=== PATIENT | female | born 1955 | race Caucasian/White ===

== ENCOUNTER → 2016-09-09 | Outpatient (CLI) | payer BC ==
[2016-09-09 11:04] LABS: CH 27.6; CHCM 32.3; HCT 40.2 % (34.0-46.0); HDW 2.17; HGB 12.9 gm/dL (11.4-16.0); MCH 27.6 pg (25.0-35.0); Mean Platelet Volume 8.1; RBC 4.67 m/uL (3.80-5.40); RDW 13.3 % (11.5-15.5); WBC 5.4 k/uL (3.8-10.6)
[2016-09-09 11:26] LABS: ALT 18 U/L (9-52); AST 28 U/L (14-36); Alkaline Phosphatase 103 U/L (38-126); Anion Gap 8 mmol/L; Blood Urea Nitrogen 18 mg/dL (7-17); Calcium 9.9 mg/dL (8.4-10.2); Carbon Dioxide 29 mmol/L (22-30); Chloride 108 mmol/L (98-107); Glucose 91 mg/dL (74-99); Non-African American GFR(MDRD) 56 (>60 ml/min/1.73 sqM); Potassium 4.8 mmol/L (3.5-5.1); Sodium 145 mmol/L (137-145); Total Bilirubin 0.8 mg/dL (0.2-1.3); Total Protein 7.2 g/dL (6.3-8.2)
== END ==
LOC: LABWHC1 10:32
PROVIDERS: ATTEND Internal Medicine Cardiovascular Disease
DX: I49.9 Cardiac arrhythmia, unspecified (principal); R00.1 Bradycardia, unspecified
CPT/HCPCS: 36415; 80053; 84439; 84443; 85027

== ENCOUNTER → 2017-03-03 | Outpatient (CLI) | payer BC ==
--- NOTE | 2017-03-04 12:03 | MM ---
Reason for exam: screening (asymptomatic). Last mammogram was performed 1 year and 4 months ago. History: Patient is postmenopausal. Family history of breast cancer in grandmother and breast cancer in aunt. Physical Findings: A clinical breast exam by your physician is recommended on an annual basis and results should be correlated with mammographic findings. MG Screening Mammo w CAD Bilateral CC and MLO view(s) were taken. Prior study comparison: November 05, 2015, bilateral MG 3d screening mammo w/cad. October 17, 2014, bilateral MG screening mammo w CAD. The breast tissue is heterogeneously dense. This may lower the sensitivity of mammography. Finding: There are typically benign round calcifications in both breasts. There is no discrete abnormality. ASSESSMENT: Benign, BI-RAD 2 RECOMMENDATION: Routine screening mammogram of both breasts in 1 year.
== END | disposition home or self-care (01) ==
LOC: RADMAMWWP 15:22
PROVIDERS: ATTEND Family Medicine
DX: Z12.31 Encounter for screening mammogram for malignant neoplasm of breast (principal)

== ENCOUNTER 2018-04-12 09:24 | Day surgery (SDC) | payer BC, MEDICARE ==
[2018-04-07 13:14] VITALS: BMI 25.6
[~2018-04-12 09:24] MED LIST: LACTATED RINGERS 1,000 ML IV SCH; LIDOCAINE 1% 20 ML VIAL (10MG/ML) FOR IV START INTRADERMA PRN
[2018-04-12 09:47] VITALS: RESP 16; TEMP 98.4
[2018-04-12] MEDS ORDERED: PROPOFOL 10 MG/ML 20 ML VIAL IV ONE (09:47)
[2018-04-12] MEDS ORDERED: MIDAZOLAM 2 MG/2 ML VIAL ONE (09:47)
[2018-04-12] MEDS ORDERED: GLUCAGON 1 MG/ML VIAL ONE (09:47)
--- NOTE | 2018-04-12 09:55 | P.GSHP ---
History of Present Illness H&P Date: 04/12/18 Chief Complaint: Screening colonoscopy This is a 63-year-old female who presents today for screening colonoscopy. Patient denies any significant GI complaints. Past Medical History Past Medical History: Hypertension, Supraventricular Tachycardia (SVT) Additional Past Medical History / Comment(s): BILAT TINNITUS. FOOD ALLERGIES History of Any Multi-Drug Resistant Organisms: None Reported Past Surgical History: Adenoidectomy, Orthopedic Surgery, Tonsillectomy, Tubal Ligation Additional Past Surgical History / Comment(s): BILAT FOOT SX. CONE BX Past Anesthesia/Blood Transfusion Reactions: No Reported Reaction Smoking Status: Never smoker - Past Family History Father Family Medical History: Cancer Medications and Allergies Home Medications Medication Instructions Recorded Confirmed Type Aspirin EC [Ecotrin Low Dose] 81 mg PO DAILY 04/07/18 04/07/18 History Cholecalciferol (Vitamin D3) 2,000 units PO DAILY 04/07/18 04/12/18 History [Vitamin D3] Citracal Tab 1 each PO DAILY 04/07/18 04/12/18 History Flecainide Acetate 50 mg PO BID 04/07/18 04/07/18 History Metoprolol Tartrate [Lopressor] 25 mg PO BID 04/07/18 04/07/18 History Allergies Allergy/AdvReac Type Severity Reaction Status Date / Time egg Allergy Rash/Hives Verified 04/12/18 09:35 Penicillins Allergy Unknown Verified 04/12/18 09:35 Childhood Sulfa (Sulfonamide Allergy Rash/Hives Verified 04/12/18 09:35 Antibiotics) corn AdvReac congestion,sometimes Verified 04/12/18 09:35 hives Milk Containing Products AdvReac congestion,sometimes Verified 04/12/18 09:35 [Dairy] hives potato AdvReac congestion,sometimes Verified 04/12/18 09:35 hives soy AdvReac congestion,sometimes Verified 04/12/18 09:35 hives tomato AdvReac congestion,sometimes Verified 04/12/18 09:35 hives Surgical - Exam Vital Signs Temp Pulse Resp BP Pulse Ox 98.4 F 72 16 179/82 99 04/12/18 09:40 04/12/18 09:40 04/12/18 09:40 04/12/18 09:40 04/12/18 09:40 - General well developed, no distress - Eyes PERRL - ENT normal pinna - Neck no masses - Respiratory normal expansion - Cardiovascular Rhythm: regular - Abdomen Abdomen: soft, non tender Assessment and Plan Assessment: We'll perform screening colonoscopy.
--- NOTE | 2018-04-12 10:12 | P.OP ---
Date of Procedure: 04/12/18 Preoperative Diagnosis: Screening colonoscopy Postoperative Diagnosis: Incomplete colonoscopy related to tortuosity valve. Normal left and sigmoid colon Procedure(s) Performed: Colonoscopy Anesthesia: MAC Surgeon: Mark Guzman Pathology: none sent Condition: stable Disposition: PACU Description of Procedure: The patient's placed on the endoscopy table in the lateral position. She received IV sedation. Digital rectal exam was performed which revealed no some mild external hemorrhoids. Flexible colonoscope was then placed patient anus and passed throughout the the colon. The scope could not be passed beyond the splenic flexure secondary to tortuosity valve. Several times made to maneuver the colonoscope however this impossible. Scope was withdrawn. The remainder of the descending; appeared normal. The scope was withdrawn to the rectum and this will. Scope was withdrawn through the anus and there were some sternal hemorrhoids noted. Scope was withdrawn for patient.
[2018-04-12 10:33] VITALS: BP 135/78; PULSE 54
--- NOTE | 2018-04-12 15:37 | FL ---
EXAMINATION TYPE: FL barium enema DATE OF EXAM: 04/12/2018 COMPARISON: NONE HISTORY: Incomplete colonoscopy TECHNIQUE: A double contrast barium enema study is performed. 3 minutes and 22 seconds of fluoroscop y time was utilized with 44 images saved. FINDINGS: Generating Plant Superintendent view of the abdomen shows overall non-obstructive bowel gas pattern. No evidence of any mass or polyp, obstructing or constricting lesion throughout the colon. No signif icant diverticular disease is noted. Appendix was filled and appeared normal. The terminal ileum was refluxed and appears within normal l imits. IMPRESSION: Unremarkable barium enema study.
== END 2018-04-12 10:54 | disposition home or self-care (01) ==
LOC: ORWHC2ENDO 09:24
PROVIDERS: ATTEND Surgery
DX: Z12.11 Encounter for screening for malignant neoplasm of colon (principal); K64.8 Other hemorrhoids; I10 Essential (primary) hypertension; I47.1 Supraventricular tachycardia; Z79.82 Long term (current) use of aspirin; Z88.0 Allergy status to penicillin; Z79.899 Other long term (current) drug therapy; Z88.2 Allergy status to sulfonamides
CPT/HCPCS: 74270; 45330; J2250; J1610; J2704

== ENCOUNTER → 2018-04-27 | Outpatient (CLI) | payer MEDICARE ==
--- NOTE | 2018-05-03 14:34 | MM ---
Reason for exam: screening (asymptomatic). Last mammogram was performed 1 year and 2 months ago. History: Patient is postmenopausal. Family history of breast cancer in grandmother and breast cancer in aunt. Physical Findings: A clinical breast exam by your physician is recommended on an annual basis and results should be correlated with mammographic findings. MG Screening Mammo w CAD Bilateral CC and MLO view(s) were taken. Prior study comparison: March 03, 2017, bilateral MG screening mammo w CAD. November 05, 2015, bilateral MG 3d screening mammo w/cad. The breast tissue is heterogeneously dense. This may lower the sensitivity of mammography. Benign bilateral oil cysts. No significant changes when compared with prior studies. ASSESSMENT: Negative, BI-RAD 1 RECOMMENDATION: Routine screening mammogram of both breasts in 1 year.
== END | disposition home or self-care (01) ==
LOC: RADMAMWWP 07:53
PROVIDERS: ATTEND Family Medicine
DX: Z12.31 Encounter for screening mammogram for malignant neoplasm of breast (principal)
CPT/HCPCS: 77067

== ENCOUNTER → 2019-12-07 | Outpatient (CLI) | payer MEDICARE ==
--- NOTE | 2019-12-08 03:40 | MR ---
EXAMINATION TYPE: MR shoulder RT wo con DATE OF EXAM: 12/07/2019 COMPARISON: None HISTORY: R shoulder pain Multiplanar multiecho imaging of the right shoulder was performed with no contrast. There is a moderate-sized shoulder joint effusion. The subscapularis tendon is intact. Biceps tendon is intact. Glenoid tonja appear intact. There is abnormal increased signal in the supraspinatus tendo n near the attachment on the greater tuberosity of the humerus. There is no retraction. There is kaci r spurring at the AC joint. There is no evidence of focal bone destruction. There is no evidence of a fracture. There is no evidence of soft tissue mass. IMPRESSION: Shoulder joint effusion. Full-thickness tear of the supraspinatus tendon at the greater tuberosity of the humerus. There is also fluid in the subacromial subdeltoid bursa. Fluid is consistent with a syn ovitis. No fracture.
== END | disposition home or self-care (01) ==
LOC: RADMRIMAIN 09:27
PROVIDERS: ATTEND Orthopaedic Surgery
DX: M75.121 Complete rotator cuff tear or rupture of right shoulder, not specified as traumatic (principal); M25.411 Effusion, right shoulder

== ENCOUNTER 2020-01-26 08:13 | Day surgery (SDC) | payer MEDICARE ==
[2020-01-23 15:16] VITALS: BMI 27.4
--- NOTE | 2020-01-25 16:33 | HP ---
HISTORY AND PHYSICAL DATE OF SURGERY: 01/26/2020 Maria Eugenia Sims is a 65-year-old patient seen with right shoulder pain. We discussed options for treatment. She elected to proceed with arthroscopy. Consent was obtained. PAST MEDICAL HISTORY: Noncontributory. PAST SURGICAL HISTORY: Tonsillectomy/adenoidectomy. DAILY MEDICATIONS: Metoprolol. ALLERGIES: PENICILLIN, SULFA. SOCIAL HISTORY: She denies tobacco use. PHYSICAL EVALUATION OF THE RIGHT SHOULDER: Flexion is 140. Abduction is 130. External rotation is 40 with weakness and significant pain. Tenderness along the anterolateral acromion and rotator cuff insertion site. Impingement is positive at 90. Drop-arm sign positive. Distal neurovascular exam intact. RADIOGRAPHS: Right shoulder radiographs revealed a type 2 anterior acromion. There is acromioclavicular joint osteoarthritis and cystic changes of the greater tuberosity. Right shoulder MRI revealed rotator cuff tendon tear. IMPRESSION: 1. Right shoulder impingement with rotator cuff tear. 2. Right shoulder acromioclavicular joint osteoarthritis. 3. Hypertension. PLAN: Right shoulder arthroscopy with subacromial decompression, arthroscopic rotator cuff repair, Ana María procedure and debridement. MMODL / IJN: [id number] /
[~2020-01-26 08:13] MED LIST changes: +DEXAMETHASONE SOD PHOSPHATE 10 MG/ML 1 ML VIAL IV ONE; +HYDROmorphone 0.5 MG/0.5 ML SYRINGE IVP PRN; -LIDOCAINE 1% 20 ML VIAL (10MG/ML) FOR IV START INTRADERMA PRN; +MIDAZOLAM 2 MG/2 ML VIAL IV PRN; +ONDANSETRON 4 MG/2 ML VIAL IVP ONE
--- NOTE | 2020-01-26 09:19 | P.ANPRN ---
Procedure Note - Anesthesia - Nerve Block Performed Right Interscalene Single Time Out Performed: Yes (09) Date of Procedure: 01/26/20 Procedure Start Time: :07 Procedure Stop Time: :13 Location of Patient: PreOp Indication: Acute Post-Operative Pain, Analgesia, Requested by Surgeon Specifically requested for management of pain by : Vick Dickson Sedation Type: Sedate with meaningful contact maintained Preparation: Sterile Prep Position: Supine Needle Types: Pajunk Needle Gauge: 20 Ultrasound used to visualize needle placement: Yes Ultrasound used to observe medication spread: Yes Injectate: 0.5% Ropivacaine (see comment for volume) (20 mL 0.5% ropivacaine with 10 mg decadron) Blood Aspirated: No Pain Paresthesia on Injection Noted: No Resistance on Injection: Normal Image Stored and Saved: Yes Events: Uneventful and Well Tolerated
[2020-01-26] MEDS ORDERED: MIDAZOLAM 2 MG/2 ML VIAL ONE (10:11)
[2020-01-26] MEDS ORDERED: fentaNYL (PF) 50 MCG/ML 2 ML AMP ONE (10:11)
[2020-01-26] MEDS ORDERED: WATER FOR INJECTION, STERILE 10 ML VIAL IV ONE (10:11)
[2020-01-26] MEDS ORDERED: ePHEDrine SULFATE/0.9% NACL/PF 50 MG/5 ML SYRINGE IV ONE (10:11)
[2020-01-26] MEDS ORDERED: LIDOCAINE 1% INJ 10MG/ML (20 ML MDV) ONE (10:11)
[2020-01-26] MEDS ORDERED: ROPIVACAINE 5 MG/ML 30 ML VIAL ONE (10:11)
[2020-01-26] MEDS ORDERED: DEXAMETHASONE SOD PHOSPHATE 4 MG/ML 1 ML VIAL ONE (10:11)
[2020-01-26] MEDS ORDERED: PROPOFOL 10 MG/ML 20 ML VIAL IV ONE (10:11)
[2020-01-26] MEDS ORDERED: LACTATED RINGERS 1,000 ML IV ONE (11:00)
[2020-01-26 12:01] VITALS: TEMP 96.8
--- NOTE | 2020-01-26 12:01 | P.OP ---
Date of Procedure: 01/26/20 Preoperative Diagnosis: Right shoulder impingement Postoperative Diagnosis: 1. Right shoulder rotator cuff tear 2. Right shoulder impingement 3. Right shoulder acromioclavicular joint osteoarthritis 4. Right shoulder partial long head biceps tendon tear 5. Right shoulder superficial labral tear Procedure(s) Performed: 1. Right shoulder arthroscopic rotator cuff repair 2. Right shoulder arthroscopic subacromial decompression 3. Right shoulder arthroscopic Ana María procedure 4. Right shoulder arthroscopic biceps tenotomy 5. Right shoulder arthroscopic debridement labral tear Implants: 44.75 Arthrex swivel lock anchors Anesthesia: GETA, regional (Interscalene block) Surgeon: Vick Dickson Student Financial Aid Manager #1: Ronak Heller Estimated Blood Loss (ml): 10 Pathology: none sent Condition: stable Disposition: PACU Indications for Procedure: 65-year-old patient seen with progressive right shoulder pain. After having treatment options discussed, she elected to proceed with arthroscopy. Operative Findings: See description of procedure Description of Procedure: Patient underwent an interscalene block by department of anesthesia. The patient was then taken to the operative suite. The patient underwent a general anesthetic by the department of anesthesia. The patient was placed into a lateral position and secured. There was appropriate padding of the bony prominence. Right shoulder was then prepped and draped in normal sterile orthopedic fashion. We placed the extremity in 10 pounds of longitudinal traction. A posterior incision was now made for a posterior working portal site. The trocar and cannula were inserted into the glenohumeral joint. Arthroscopy was initiated. Spinal needle was now inserted anteriorly, to ascertain the anterior working portal site. An incision was now made in that area, a trocar was inserted followed by a probe. There was partial tearing of the long head biceps tendon. There was an obvious rotator cuff tear I could visualize from the glenohumeral side. There was some superficial tearing of the superior labrum. There were some grade 1 chondromalacia changes of the glenohumeral joint. I performed an arthroscopic biceps tenotomy. I debrided the labral tear. The residual labrum was again probed and found to be stable. I now removed the instruments from glenohumeral joint. Utilizing the posterior working portal site, the trocar and cannula were inserted into the subacromial space. Arthroscopy initiated. I made an incision 2 fingerbreadths lateral to the acromion. I introduced my trocar followed by my [employer]throCare ablator. I now began ablating thick subacromial bursal tissue, which exposed the undersurface of the anterior acromion. There was diminished subacromial space. There was a very prominent anterior acromion. A motorized bur was introduced and a subacromial decompression was performed. I also excised some osteophytes off the inferior aspect of the distal clavicle. The AC joint was visualized and noted to be fairly arthritic. The motorized bur was introduced in the anterior portal site and a Ana María procedure was performed without difficulty, decompressing the AC joint nicely. I turned my attention to the rotator cuff. There was a 22.5 cm rotator cuff tear. I debrided the margins getting down to stable tendon tissue. The defect now measured 2.5 cm but was freely mobile over the footprint. I introduced my motorized bur and abraded the footprint area, getting some petechial bleeding. I now made an accessory portal site off the lateral aspect of the acromion. I punched 2 holes medial for medial row fixation with the assistance of Amado BURGOS carefully tapping the punch with a mallet as I held the punch and the camera. I now introduced both anchors into the pre-punched holes and Amado BURGOS tapped them with the mallet as I held anchors and the camera. Amado BURGOS now screwed the anchors in place a while I held the anchor guide and camera. All 8 limbs of suture were now passed through good bites of rotator cuff tendon. I now punched 2 holes for lateral row fixation again I held the punch and camera while Amado BURGOS used a mallet to tap in the punch. We now passed sutures through both anchors and individually I introduced the anchors into the pre- punch holes I held the anchor guide in position with one hand holding the camera with the other hand while Amado BURGOS tensioned the sutures and screwed in the anchors one at a time. All residual suture limbs were now clipped. We had good compression of the tendon along the entire footprint. I injected 1 mL Renyte intra-articular. Instruments now removed from the portal sites. All portal sites were approximated with nylon suture. Sterile dressings were applied followed by a shoulder immobilizer. Ronak BURGOS assisted in this complex case. The patient was awakened, transferred to a bed, and taken to recovery in stable condition.
[2020-01-26 12:04] VITALS: RESP 16
[2020-01-26 13:10] VITALS: BP 145/76; PULSE 51
== END 2020-01-26 13:39 | disposition home or self-care (01) ==
LOC: OR 08:13
PROVIDERS: ATTEND Orthopaedic Surgery
DX: M75.101 Unspecified rotator cuff tear or rupture of right shoulder, not specified as traumatic (principal); M24.811 Other specific joint derangements of right shoulder, not elsewhere classified; M19.011 Primary osteoarthritis, right shoulder; S43.431A Superior glenoid labrum lesion of right shoulder, initial encounter; M94.211 Chondromalacia, right shoulder; M25.711 Osteophyte, right shoulder; I10 Essential (primary) hypertension; I47.1 Supraventricular tachycardia; N20.0 Calculus of kidney; H93.13 Tinnitus, bilateral; Z88.0 Allergy status to penicillin; Z88.2 Allergy status to sulfonamides; Z79.899 Other long term (current) drug therapy; Z98.51 Tubal ligation status; Z90.89 Acquired absence of other organs; Z91.011 Allergy to milk products; Z91.018 Allergy to other foods; Z91.012 Allergy to eggs; Z86.73 Personal history of transient ischemic attack (TIA), and cerebral infarction without residual deficits; Z98.890 Other specified postprocedural states; X58.XXXA Exposure to other specified factors, initial encounter
CPT/HCPCS: 29827; 29826; 29824; 64415; 76942; C1713; Q4212; J2250; J1100 ×2; J2405; J0690; J2001; J3010; J2795; J2704

== ENCOUNTER → 2020-08-24 | Outpatient (CLI) | payer MEDICARE ==
--- NOTE | 2020-08-29 10:09 | MM ---
Reason for exam: screening (asymptomatic). Last mammogram was performed 2 years and 4 months ago. History: Patient is postmenopausal. Family history of breast cancer in grandmother and breast cancer in aunt. Physical Findings: A clinical breast exam by your physician is recommended on an annual basis and results should be correlated with mammographic findings. MG 3D Screening Mammo W/Cad Bilateral CC and MLO view(s) were taken. Prior study comparison: April 27, 2018, bilateral MG screening mammo w CAD. March 03, 2017, bilateral MG screening mammo w CAD. The breast tissue is heterogeneously dense. This may lower the sensitivity of mammography. ASSESSMENT: Benign, BI-RAD 2 RECOMMENDATION: Routine screening mammogram of both breasts in 1 year.
== END | disposition home or self-care (01) ==
LOC: RADMAMWWP 13:22
PROVIDERS: ATTEND Family Medicine
DX: Z12.31 Encounter for screening mammogram for malignant neoplasm of breast (principal); Z80.3 Family history of malignant neoplasm of breast
CPT/HCPCS: 77063; 77067

== ENCOUNTER 2021-07-29 16:40 | Observation (INO) | payer MEDICARE ==
--- NOTE | 2021-07-29 17:25 | ED ---
General Adult HPI - General Chief complaint: Arrhythmia/Palpitations Stated complaint: Increased heart rate Time Seen by Provider: 07/29/21 17:11 Source: patient, RN notes reviewed Mode of arrival: ambulatory Limitations: no limitations - History of Present Illness Initial comments: Patient is a pleasant 58-year-old female presenting to the emergency department palpitations. Onset of symptoms was around 2 AM. Heart rate was as high as 160 at home. Patient states no emergency department her symptoms have resolved and patient feels normal. Patient does have history of several symptoms previously associated with SVT. Patient has had to come to the emergency department 3 times previously. No associated dyspnea. No chest pain. - Related Data Home Medications Medication Instructions Recorded Confirmed Cholecalciferol (Vitamin D3) 2,000 units PO DAILY 04/07/18 01/26/20 [Vitamin D3] Citracal Tab 1 each PO DAILY 04/07/18 01/26/20 Flecainide Acetate 50 mg PO BID 04/07/18 01/26/20 Metoprolol Tartrate [Lopressor] 25 mg PO BID 04/07/18 01/26/20 Vitamin B Complex 1 each PO DAILY 01/23/20 01/26/20 Previous Rx's Medication Instructions Recorded HYDROcodone/APAP 7.5-325MG [[place] 1 each PO Q6HR PRN #21 tab 01/26/20 7.5] Allergies Allergy/AdvReac Type Severity Reaction Status Date / Time egg Allergy Rash/Hives Verified 07/29/21 17:00 Penicillins Allergy Unknown Verified 07/29/21 17:00 Childhood Sulfa (Sulfonamide Allergy Rash/Hives Verified 07/29/21 17:00 Antibiotics) corn AdvReac congestion,sometimes Verified 07/29/21 17:00 hives Milk Containing Products AdvReac congestion,sometimes Verified 07/29/21 17:00 [Dairy] hives potato AdvReac congestion,sometimes Verified 07/29/21 17:00 hives soy AdvReac congestion,sometimes Verified 07/29/21 17:00 hives tomato AdvReac congestion,sometimes Verified 07/29/21 17:00 hives Review of Systems ROS Statement: Those systems with pertinent positive or pertinent negative responses have been documented in the HPI. ROS Other: All systems not noted in ROS Statement are negative. Constitutional: Denies: fever Eyes: Denies: eye pain ENT: Denies: ear pain Respiratory: Denies: cough, dyspnea Cardiovascular: Reports: palpitations. Denies: chest pain Endocrine: Denies: fatigue Gastrointestinal: Denies: abdominal pain Genitourinary: Denies: urgency Musculoskeletal: Denies: back pain Skin: Denies: rash Neurological: Denies: weakness Past Medical History Past Medical History: Hypertension, Supraventricular Tachycardia (SVT) Additional Past Medical History / Comment(s): BILAT TINNITUS. FOOD ALLERGIES History of Any Multi-Drug Resistant Organisms: None Reported Past Surgical History: Adenoidectomy, Orthopedic Surgery, Tonsillectomy, Tubal Ligation Additional Past Surgical History / Comment(s): BILAT FOOT SX. CONE BX Past Anesthesia/Blood Transfusion Reactions: No Reported Reaction Past Psychological History: No Psychological Hx Reported Smoking Status: Never smoker Past Alcohol Use History: None Reported Past Drug Use History: None Reported - Past Family History Father Family Medical History: Cancer General Exam Limitations: no limitations General appearance: alert, in no apparent distress Head exam: Present: normocephalic Eye exam: Present: normal appearance Neck exam: Present: normal inspection Respiratory exam: Present: normal lung sounds bilaterally Cardiovascular Exam: Present: regular rate, normal heart sounds. Absent: tachycardia GI/Abdominal exam: Present: soft. Absent: tenderness Extremities exam: Present: normal inspection. Absent: pedal edema, calf tenderness Neurological exam: Present: alert Psychiatric exam: Present: normal affect, normal mood Skin exam: Present: normal color Course Vital Signs 07/29/21 07/29/21 16:58 17:09 Temperature 97.8 F Pulse Rate 165 H 81 Pulse Rate [ 81 Furnace Combustion Analyst ] Respiratory 20 18 Rate Blood Pressure 129/86 148/82 O2 Sat by Pulse 97 99 Oximetry EKG Findings - EKG Comments: EKG Findings:: Sinus rhythm with frequent PVCs. W[place] 143. QRS 11. QT 341. QTC 391. Left axis. Normal QRS. Nonspecific ST-T. Medical Decision Making - Medical Decision Making Patient reevaluated and resting comfortably in bed, symptom-free. There was some ST depression noticed on EKG. No old one to compare to. Case was discussed with Dr. Samano who agrees she would like patient to stay overnight for monitoring and cardiac evaluation. Patient reevaluated and updated. - Lab Data Result diagrams: 07/29/21 17:28 07/29/21 17:28 Lab Results 07/29/21 07/29/21 07/29/21 Range/Units 17:28 17:28 17:28 WBC 8.2 (3.8-10.6) k/uL RBC 4.86 (3.80-5.40) m/uL Hgb 13.6 (11.4-16.0) gm/dL Hct 42.2 (34.0-46.0) % MCV 86.9 (80.0-100.0) fL MCH 27.9 (25.0-35.0) pg MCHC 32.2 (31.0-37.0) g/dL RDW 13.0 (11.5-15.5) % Plt Count 272 (150-450) k/uL MPV 8.3 Neutrophils % 48 % Lymphocytes % 38 % Monocytes % 9 % Eosinophils % 1 % Basophils % 0 % Neutrophils # 3.9 (1.3-7.7) k/uL Lymphocytes # 3.1 (1.0-4.8) k/uL Monocytes # 0.8 (0-1.0) k/uL Eosinophils # 0.1 (0-0.7) k/uL Basophils # 0.0 (0-0.2) k/uL PT 10.6 (9.0-12.0) sec INR 1.0 (<1.2) APTT 23.0 (22.0-30.0) sec Sodium 141 (137-145) mmol/L Potassium 3.8 (3.5-5.1) mmol/L Chloride 108 H (98-107) mmol/L Carbon Dioxide 23 (22-30) mmol/L Anion Gap 10 mmol/L BUN 22 H (7-17) mg/dL Creatinine 1.19 H (0.52-1.04) mg/dL Est GFR (CKD-EPI)AfAm 54 (>60 ml/min/1.73 sqM) Est GFR (CKD-EPI)NonAf 47 (>60 ml/min/1.73 sqM) Glucose 174 H (74-99) mg/dL Calcium 9.5 (8.4-10.2) mg/dL Magnesium 1.9 (1.6-2.3) mg/dL Total Bilirubin 0.5 (0.2-1.3) mg/dL AST 26 (14-36) U/L ALT 9 (4-34) U/L Alkaline Phosphatase 98 (38-126) U/L Troponin I (0.000-0.034) ng/mL Total Protein 7.2 (6.3-8.2) g/dL Albumin 4.1 (3.5-5.0) g/dL TSH 1.590 (0.465-4.680) mIU/L Free T4 1.14 (0.78-2.19) ng/dL Free T3 pg/mL 3.6 (2.8-5.3) pg/ml 07/29/21 Range/Units 17:28 WBC (3.8-10.6) k/uL RBC (3.80-5.40) m/uL Hgb (11.4-16.0) gm/dL Hct (34.0-46.0) % MCV (80.0-100.0) fL MCH (25.0-35.0) pg MCHC (31.0-37.0) g/dL RDW (11.5-15.5) % Plt Count (150-450) k/uL MPV Neutrophils % % Lymphocytes % % Monocytes % % Eosinophils % % Basophils % % Neutrophils # (1.3-7.7) k/uL Lymphocytes # (1.0-4.8) k/uL Monocytes # (0-1.0) k/uL Eosinophils # (0-0.7) k/uL Basophils # (0-0.2) k/uL PT (9.0-12.0) sec INR (<1.2) APTT (22.0-30.0) sec Sodium (137-145) mmol/L Potassium (3.5-5.1) mmol/L Chloride (98-107) mmol/L Carbon Dioxide (22-30) mmol/L Anion Gap mmol/L BUN (7-17) mg/dL Creatinine (0.52-1.04) mg/dL Est GFR (CKD-EPI)AfAm (>60 ml/min/1.73 sqM) Est GFR (CKD-EPI)NonAf (>60 ml/min/1.73 sqM) Glucose (74-99) mg/dL Calcium (8.4-10.2) mg/dL Magnesium (1.6-2.3) mg/dL Total Bilirubin (0.2-1.3) mg/dL AST (14-36) U/L ALT (4-34) U/L Alkaline Phosphatase (38-126) U/L Troponin I <0.012 (0.000-0.034) ng/mL Total Protein (6.3-8.2) g/dL Albumin (3.5-5.0) g/dL TSH (0.465-4.680) mIU/L Free T4 (0.78-2.19) ng/dL Free T3 pg/mL (2.8-5.3) pg/ml Disposition Clinical Impression: Tachycardia Disposition: ADMITTED IP TO THIS HOSP Is patient prescribed a controlled substance at d/c from ED?: No Referrals: Josh Samano DO [Primary Care Provider] - 1-2 days Time of Disposition: 18:36
[2021-07-29 17:51] LABS: Basophils % (A) 0 %; Eosinophils # (A) 0.1 k/uL (0-0.7); Eosinophils % (A) 1 %; HCT 42.2 % (34.0-46.0); HGB 13.6 gm/dL (11.4-16.0); Lymphocytes # (A) 3.1 k/uL (1.0-4.8); Lymphocytes % (A) 38 %; MCH 27.9 pg (25.0-35.0); MCHC 32.2 g/dL (31.0-37.0); MCV 86.9 fL (80.0-100.0); Mean Platelet Volume 8.3; Monocytes # (A) 0.8 k/uL (0-1.0); Monocytes % (A) 9 %; Neutrophils # (A) 3.9 k/uL (1.3-7.7); Neutrophils % (A) 48 %; Platelet Count 272 k/uL (150-450); RBC 4.86 m/uL (3.80-5.40); WBC 8.2 k/uL (3.8-10.6)
[2021-07-29 18:01] LABS: Albumin 4.1 g/dL (3.5-5.0); Calcium 9.5 mg/dL (8.4-10.2); Magnesium 1.9 mg/dL (1.6-2.3); Potassium 3.8 mmol/L (3.5-5.1); Total Bilirubin 0.5 mg/dL (0.2-1.3); Total Protein 7.2 g/dL (6.3-8.2)
[2021-07-29 18:16] LABS: Prothrombin Time 10.6 sec (9.0-12.0)
[2021-07-29 18:18] LABS: T4, Free (Free Thyroxine) 1.14 ng/dL (0.78-2.19)
[2021-07-29] MEDS ORDERED: NALOXONE 0.4 MG/ML 1 ML VIAL IV PRN (18:38)
--- NOTE | 2021-07-29 19:58 | XR ---
EXAMINATION TYPE: XR chest 2V DATE OF EXAM: 07/29/2021 COMPARISON: 10/29/2012 HISTORY: Dysrhythmia TECHNIQUE: FINDINGS: Heart is normal. Lungs are clear of infiltrate. No heart failure. There are chest leads. Th ere are no hilar masses. IMPRESSION: No active cardiopulmonary disease. No change.
[2021-07-29] MEDS ORDERED: ASPIRIN 81 MG PO STA (22:04)
[2021-07-29] MEDS: SODIUM CHLORIDE 0.9% 1,000 ML IV SCH (22:23)
--- NOTE | 2021-07-30 08:51 | P.CRDCN ---
History of Present Illness Consult date: 07/30/21 History of present illness: 66-year-old lady with history of paroxysmal SVT comes to Hospital complaining of sustained palpitations. In EKG shows sinus rhythm with PVCs. She hasn't had any further episodes of palpitations since being admitted. She denies chest pain difficulty in breathing dizziness or syncope. There is no history of focal neurological deficits. Patient has history of paroxysmal SVT and is currently on flecainide 50 mg twice a day. At the time of my evaluation patient appears comfortable at rest and she already had her breakfast this morning. Patient had labs done that showed a troponin of 0.09 and 0.09. She does not have chest pain difficulty in breathing. The troponin elevation could be due to supply demand mismatch related to possible SVT could also be due to mildly elevated creatinine. I will obtain a 2-D echo to assess her LV function and wall motion and if necessary perform either cardiac catheterization or stress test. If echo shows normal LV function and wall motion is normal I will consider increasing the flecainide dose to 100 mg twice a day. We will obtain his stress echo on her tomorrow. If there are wall motion of normalities her LV dysfunction we will perform cardiac catheterization Constitutional: Denies chills. Denies fever. Eyes: Denies blurred vision. Denies pain. Ears, nose, mouth and throat: Denies headache. Denies sore throat. Cardiovascular: Denies chest pain. Denies shortness of breath.significant for palpitations Respiratory: Denies cough. Gastrointestinal: Denies abdominal pain. Denies diarrhea. Denies nausea. Denies vomiting. Musculoskeletal: Denies myalgias. Integumentary: Denies pruritus. Denies rash. Neurological: Denies numbness. Denies weakness. Psychiatric: Denies anxiety. Denies depression. Endocrine: Denies fatigue. Denies weight change. Genitourinary: Denies burning, hematuria, frequency of urination. Hematological: No anemia or excess bleeding. General: The patient is awake and alert, in no distress, and does not appear acutely ill. Skin: Skin is warm and dry and no rashes or lesions are noted. Eye: Pupils are equal, round and reactive to light, extra-ocular movements are intact; there is normal conjunctiva bilaterally. Ears, nose, mouth and throat: There are moist mucous membranes and no oral lesions. Neck: The neck is supple, there is no tenderness or JVD. Cardiovascular: [ There is a regular rate and rhythm.][ No murmur, rub or gallop is appreciated.] Respiratory: Lungs are clear to auscultation, respirations are non-labored, breath sounds are equal. Gastrointestinal: Soft, non-distended, non-tender abdomen without masses or organomegaly noted. There is no rebound or guarding present. Bowel sounds are unremarkable. Back: There is no tenderness to palpation in the midline. There is no obvious deformity. Musculoskeletal: Normal ROM, no tenderness, There is no pedal edema. There is no calf tenderness or swelling. Extremities:[ No edema.] Vascular: [Femoral pulse is normal.][ Posterior tibial pulses are normal .][Dorsalis pedis is palpable.] Neurological: CN II-XII intact. There are no obvious motor or sensory deficits. Speech is normal. Psychiatric: Cooperative, appropriate mood & affect, normal judgment. assessment and plan: Paroxysmal SVT elevated troponin I Will continue the patient on flecainide obtain a 2-D echo stress test in the morning if necessary and will perform cardiac catheterization Past Medical History Past Medical History: Hypertension, Supraventricular Tachycardia (SVT) Additional Past Medical History / Comment(s): BILAT TINNITUS. FOOD ALLERGIES History of Any Multi-Drug Resistant Organisms: None Reported Past Surgical History: Adenoidectomy, Orthopedic Surgery, Tonsillectomy, Tubal Ligation Additional Past Surgical History / Comment(s): BILAT FOOT SX. CONE BX Past Anesthesia/Blood Transfusion Reactions: No Reported Reaction Past Psychological History: No Psychological Hx Reported Smoking Status: Never smoker Past Alcohol Use History: None Reported Past Drug Use History: None Reported - Past Family History Father Family Medical History: Cancer Medications and Allergies Home Medications Medication Instructions Recorded Confirmed Type Flecainide Acetate 50 mg PO BID 04/07/18 07/29/21 History Metoprolol Tartrate [Lopressor] 12.5 mg PO BID 04/07/18 07/29/21 History Cholecalciferol [Vitamin D3 (25 25 mcg PO DAILY 07/29/21 07/29/21 History Mcg = 1000 Iu)] lisinopriL [Zestril] 5 mg PO DAILY 07/29/21 07/29/21 History Allergies Allergy/AdvReac Type Severity Reaction Status Date / Time egg Allergy Rash/Hives Verified 07/29/21 19:33 Penicillins Allergy Unknown Verified 07/29/21 19:33 Childhood Sulfa (Sulfonamide Allergy Rash/Hives Verified 07/29/21 19:33 Antibiotics) corn AdvReac congestion,sometimes Verified 07/29/21 19:33 hives Milk Containing Products AdvReac congestion,sometimes Verified 07/29/21 19:33 [Dairy] hives potato AdvReac congestion,sometimes Verified 07/29/21 19:33 hives soy AdvReac congestion,sometimes Verified 07/29/21 19:33 hives tomato AdvReac congestion,sometimes Verified 07/29/21 19:33 hives Physical Exam Vitals: Vital Signs Temp Pulse Pulse Resp BP Pulse Ox 07/30/21 08:00 66 13 148/90 96 07/30/21 05:50 98.1 F 65 18 140/85 98 07/30/21 04:00 62 18 134/74 98 07/30/21 01:00 60 18 07/30/21 00:00 60 18 157/83 96 07/29/21 21:33 65 16 144/79 96 07/29/21 19:00 73 18 140/96 97 07/29/21 18:20 70 18 142/92 98 07/29/21 17:09 81 81 18 148/82 99 07/29/21 16:58 97.8 F 165 H 20 129/86 97 Intake and Output 07/29/21 07/30/21 07/30/21 22:59 06:59 14:59 Other: Weight 64.41 kg Results 07/29/21 17:28 07/29/21 17:28 Cardiac Enzymes 07/29/21 07/29/21 07/29/21 Range/Units 17:28 17:28 20:53 AST 26 (14-36) U/L Troponin I <0.012 0.095 H* (0.000-0.034) ng/mL 07/30/21 Range/Units 00:21 AST (14-36) U/L Troponin I 0.097 H* (0.000-0.034) ng/mL Coagulation 07/29/21 Range/Units 17:28 PT 10.6 (9.0-12.0) sec APTT 23.0 (22.0-30.0) sec CBC 07/29/21 Range/Units 17:28 WBC 8.2 (3.8-10.6) k/uL RBC 4.86 (3.80-5.40) m/uL Hgb 13.6 (11.4-16.0) gm/dL Hct 42.2 (34.0-46.0) % Plt Count 272 (150-450) k/uL Comprehensive Metabolic Panel 07/29/21 Range/Units 17:28 Sodium 141 (137-145) mmol/L Potassium 3.8 (3.5-5.1) mmol/L Chloride 108 H (98-107) mmol/L Carbon Dioxide 23 (22-30) mmol/L BUN 22 H (7-17) mg/dL Creatinine 1.19 H (0.52-1.04) mg/dL Glucose 174 H (74-99) mg/dL Calcium 9.5 (8.4-10.2) mg/dL AST 26 (14-36) U/L ALT 9 (4-34) U/L Alkaline Phosphatase 98 (38-126) U/L Total Protein 7.2 (6.3-8.2) g/dL Albumin 4.1 (3.5-5.0) g/dL Current Medications Generic Name Dose Route Start Last Admin Trade Name Freq PRN Reason Stop Dose Admin Sodium Chloride 1,000 mls @ 75 mls/hr 07/29/21 18:45 07/29/21 22:23 Saline 0.9% IV 75 mls/hr .[id number] IBETH Administration Naloxone HCl 0.2 mg 07/29/21 18:38 Naloxone 0.4 Mg/Ml 1 Ml Vial IV Q2M PRN Opioid Reversal Intake and Output 07/29/21 07/30/21 07/30/21 22:59 06:59 14:59 Other: Weight 64.41 kg 07/29/21 17:28 07/29/21 17:28 EKG Interpretations (text) EKG shows normal sinus rhythm with PVCs
[2021-07-30] MEDS: SODIUM CHLORIDE 0.9% 1,000 ML IV SCH ×2 (10:27→22:57)
[2021-07-30] MEDS: PANTOPRAZOLE 40 MG/10 ML VIAL IVP SCH (17:47)
[2021-07-30] MEDS: lisinopriL 5 MG TAB PO SCH (17:47)
[2021-07-30 17:48] VITALS: RESP 16
--- NOTE | 2021-07-30 18:16 | CA ---
Transthoracic Echo Report Name: Maria Eugenia Sims Age: 66 Gender: F : 1955 Exam Date: 07/30/2021 08:41 Exam Location: [facility] Ht (in): 62 Wt (lb): 142 Ordering Physician: Dk Sales MD ([id number]) Attending/Referring Phys: Mónica ALLEN Dater Assembler Demetra Tian RDCS Procedure CPT: Indications: Arrythmia Cardiac Hx: SVT, HTN. Technical Quality: Contrast 1: Total Dose (mL): Contrast 2: Total Dose (mL): MEASUREMENTS (Male / Female) Normal Values 2D ECHO LV Diastolic Diameter PLAX 3.7 cm 4.2 - 5.9 / 3.9 - 5.3 cm LV Systolic Diameter PLAX 3.0 cm IVS Diastolic Thickness 0.9 cm 0.6 - 1.0 / 0.6 - 0.9 cm LVPW Diastolic Thickness 1.3 cm 0.6 - 1.0 / 0.6 - 0.9 cm LV Relative Wall Thickness 0.6 RV Internal Dim ED PLAX 3.2 cm LA Systolic Diameter LX 2.8 cm 3.0 - 4.0 / 2.7 - 3.8 cm LA Volume 30.6 cm 18 - 58 / 22 - 52 cm M-MODE Aortic Root Diameter MM 2.6 cm LA Systolic Diameter MM 3.3 cm LA Ao Ratio MM 1.3 MV E Point Septal Separation 0.6 cm AV Cusp Separation MM 1.6 cm DOPPLER MV Area PHT 3.3 cm Mitral E Point Velocity 73.1 cm/s Mitral A Point Velocity 77.4 cm/s Mitral E to A Ratio 0.9 MV Deceleration Time 231.2 ms MV E' Velocity 5.8 cm/s Mitral E to MV E' Ratio 12.7 TR Peak Velocity 226.7 cm/s TR Peak Gradient 20.6 mmHg Right Ventricular Systolic Press 25.6 mmHg FINDINGS Left Ventricle Left ventricular ejection fraction is estimated at 60 %. Right Ventricle Normal right ventricular size and function. Right Atrium Normal right atrial size. Left Atrium Mild left atrial dilatation. Mitral Valve Trace to mild mitral regurgitation. Aortic Valve Trileaflet aortic valve. Tricuspid Valve Mild tricuspid regurgitation. Pulmonic Valve Structurally normal pulmonic valve. Pericardium Normal pericardium. Aorta Normal size aortic root and proximal ascending aorta. CONCLUSIONS Normal LV size and systolic function. Mild mitral and tricuspid insufficiency. No pericardial effusion Previewed by: Dr. Snana Padron MD (Electronically Signed) Final Date: 30 July 2021 18:16
[2021-07-30] MEDS: METOPROLOL TARTRATE 12.5 MG TAB PO SCH (20:54)
[2021-07-30] MEDS: FLECAINIDE 50 MG TAB PO SCH (20:54)
[2021-07-31 06:40] VITALS: TEMP 98.1
[2021-07-31 07:52] LABS: Basophils # (A) 0.1 k/uL (0-0.2); Basophils % (A) 1 %; Eosinophils # (A) 0.1 k/uL (0-0.7); Eosinophils % (A) 1 %; HCT 45.8 % (34.0-46.0); HGB 14.6 gm/dL (11.4-16.0); Lymphocytes % (A) 31 %; MCH 27.8 pg (25.0-35.0); MCHC 31.8 g/dL (31.0-37.0); MCV 87.3 fL (80.0-100.0); Mean Platelet Volume 8.4; Monocytes # (A) 0.5 k/uL (0-1.0); Monocytes % (A) 8 %; Neutrophils # (A) 3.7 k/uL (1.3-7.7); Neutrophils % (A) 56 %; Platelet Count 287 k/uL (150-450); RBC 5.25 m/uL (3.80-5.40); WBC 6.6 k/uL (3.8-10.6)
[2021-07-31 08:08] LABS: Calcium 9.6 mg/dL (8.4-10.2); Potassium 4.6 mmol/L (3.5-5.1)
[2021-07-31] MEDS ORDERED: CHOLECALCIFEROL 25 MCG (1000 IU) TABLET PO SCH (09:00)
[2021-07-31] MEDS: METOPROLOL TARTRATE 12.5 MG TAB PO SCH (09:36)
[2021-07-31] MEDS: FLECAINIDE 50 MG TAB PO SCH (09:36)
[2021-07-31] MEDS: lisinopriL 5 MG TAB PO SCH (09:46)
[2021-07-31] MEDS: PANTOPRAZOLE 40 MG/10 ML VIAL IVP SCH (09:46)
[2021-07-31 10:22] VITALS: BP 128/66; PULSE 75
--- NOTE | 2021-07-31 12:50 | CA ---
Stress Echo Report Maria Eugenia Sims Age: 66 Gender: F : 1955 Exam Date: 07/31/2021 11:21 Exam Location: [facility] Ht (in): 62 Wt (lb): 142 Ordering Physician: Dk Sales MD Referring Physician: LAMAR,, Tucking Machine Operator: Shelby Pablo RDCS Technologist Procedure CPT: Indication: Arrythmia ICD-9 Codes: Rhythm: Patient History: Cardiac arrhythmia Cardiac Medications: Medications in past 24 hours: Contrast: Stress Results Protocol: Demarcus Total dose(mL): Exercise Duration (min:sec): 6.[address] Depression (mm): Angina Score: Morejon Score: METS: 7.9 Resting HR: 116 Resting BP: 127 / 77 Peak HR: 154 Peak BP: 171 / 88 Max Predicted HR: 152 101 % Max Predicted HR Target HR: 129 Double Product: [id number] Stress Summary: BP Response: Reason for Termination: Cardiac Symptoms: ECG Analysis Resting ECG: Stress ECG: Arrhythmia: Echo Analysis Resting Echo: Peak Echo Analysis: MEASUREMENTS (Male/Female) Normal Values CONCLUSIONS Limited exercise capacity. Normal stress test by EKG criteria. Normal stress echocardiogram without evidence of ischemia Dr. Sanna Padron MD (Electronically Signed) Final Date: 31 July 2021 12:49
--- NOTE | 2021-07-31 13:57 | P.PN ---
Subjective Progress Note Date: 07/31/21 HISTORY OF PRESENT ILLNESS: patient examined this morning at the bedside. Patient denies chest pain or pressure. She denies shortness of breath. Denies dizziness or lightheadedness. Echocardiogram completed revealing ejection fraction 60%. Telemetry reveals sinus mechanism with no further episodes of SVT. PHYSICAL EXAM: VITAL SIGNS: Reviewed. GENERAL: Well-developed in no acute distress. NECK: Supple. No JVD or thyromegaly LUNGS: Respirations even and unlabored. Lungs essentially clear to auscultation bilaterally. HEART: Regular rate and rhythm. S1 and S2 heard. EXTREMITIES: Normal range of motion. No clubbing or cyanosis. Peripheral pulses intact. No lower extremity edema ASSESSMENT: Paroxysmal SVT Abnormal troponins, likely secondary to above, stress echocardiogram negative for ischemia PLAN: Patient underwent stress echo today which was negative for ischemia. Patient may be discharged home from a cardiac standpoint on current cardiac medications. Nurse practitioner note has been reviewed by physician. Signing provider agrees with the documented findings, assessment, and plan of care. Objective - Vital Signs Vital signs: Vital Signs Temp 98.1 F 07/31/21 08:22 Pulse 75 07/31/21 08:22 Resp 16 07/31/21 08:22 BP 128/66 07/31/21 08:22 Pulse Ox 98 07/31/21 08:22 Intake & Output 07/30/21 07/31/21 07/31/21 18:59 06:59 18:59 Intake Total 225 Balance 225 Weight 64.41 kg 64.41 kg Intake: Intake, IV Titration 225 Amount Sodium Chloride 0.9% 1, 225 000 ml @ 75 mls/hr IV . [id number] [facility] Rx#:[id number] Other: # Voids 4 - Labs CBC & Chem 7: 07/31/21 07:24 07/31/21 07:24 Labs: Abnormal Lab Results - Last 24 Hours (Table) 07/31/21 Range/Units 07:24 BUN 18 H (7-17) mg/dL
--- NOTE | 2021-07-31 15:59 | P.DS ---
Providers Date of admission: 07/29/21 18:38 Expected date of discharge: 07/31/21 Attending physician: Josh Samano Consults: 07/29/21 18:38 Consult Physician Routine Consulting Provider: Sanna Padron Consult Reason/Comments: Tachycardia, please review EKG Do you want consulting provider notified?: Yes Primary care physician: Josh Samano [facility] Course: Final Diagnoses: Paroxysmal SVT, in a patient with history of SVT, with elevated troponins ,stress test pending Renal insufficiency Hypertension This is a 66-year-old female with prior history of SVT ,admitted with rapid heart rate reported up to 170 at home with no chest pain, no shortness of breath and no syncope. Denied cough fever or chills. No edema. Troponins elevated, less than 0.012, 0.095, 0.097 .Echo reported EF of 60%. Evaluated by cardiology patient is scheduled for stress test this morning. Renal function improving with creatinine down to 1.03 near baseline. [facility] with guarded prognosis pending stress test results, final DC recommendations and clearance per cardiology. The impression and plan of care has been dictated as directed. : I performed a history and examination of this patient, discussed the same with the dictator. I agree with the dictator's note ,documented as a scribe. Any additional findings or plans will be noted. Patient Condition at Discharge: Stable Plan - Discharge Summary Discharge Rx Participant: No New Discharge Prescriptions: Continue Metoprolol Tartrate [Lopressor] 12.5 mg PO BID Flecainide Acetate 50 mg PO BID Cholecalciferol [Vitamin D3 (25 Mcg = 1000 Iu)] 25 mcg PO DAILY lisinopriL [Zestril] 5 mg PO DAILY Discharge Medication List Flecainide Acetate 50 mg PO BID 04/07/18 [History] Metoprolol Tartrate [Lopressor] 12.5 mg PO BID 04/07/18 [History] Cholecalciferol [Vitamin D3 (25 Mcg = 1000 Iu)] 25 mcg PO DAILY 07/29/21 [History] lisinopriL [Zestril] 5 mg PO DAILY 07/29/21 [History] Follow up Appointment(s)/Referral(s): Josh Samano DO [Primary Care Provider] - 3 Days Patient Instructions/Handouts: Tachycardia (GEN) Discharge Disposition: HOME SELF-CARE
--- NOTE | 2021-07-31 21:20 | P.HPIM ---
History of Present Illness H&P Date: 07/30/21 Patient is a pleasant 58-year-old female presenting to the emergency department palpitations. Onset of symptoms was around 2 AM. Heart rate was as high as 160 at home. Patient states no emergency department her symptoms have resolved and patient feels normal. Patient does have history of several symptoms previously associated with SVT. Patient has had to come to the emergency department 3 harjinder es previously. No associated dyspnea. No chest pain. Review of Systems GENERAL: Patient denies fever. Denies chills. EYES: Denies blurred vision. Denies vision changes. Denies eye pain. EARS, NOSE, MOUTH, & THROAT: Denies headache. Denies sore throat. Denies ear pain. RESPIRATORY: Denies cough. Denies shortness of breath. Denies sputum production. Denies hemoptysis. CARDIOVASCULAR: Patient admits to shortness of breath and chest pain. She has a history of supraventricular tachycardia. GASTROINTESTINAL: Denies abdominal pain. Denies diarrhea. Denies constipation. Denies nausea. Denies vomiting. Denies heartburn. Denies blood in the stool. GENITOURINARY: Denies urinary frequency. Denies burning. Denies dysuria. Denies cloudy urine. Denies blood in the urine. MUSCULOSKELETAL: Denies myalgias. Denies joint swelling. Denies decreased range of motion beyond patients baseline. INTEGUMENTARY: Denies pruitis. Denies rash. PSYCHIATRIC: Denies suicidal or homicial ideations. ENDOCRINE: Denies weight change. Denies polydipsia. Denies polyuria. HEMATOLOGIC: Denies bleeding disorders. Past Medical History Past Medical History: Hypertension, Supraventricular Tachycardia (SVT) Additional Past Medical History / Comment(s): BILAT TINNITUS. FOOD ALLERGIES History of Any Multi-Drug Resistant Organisms: None Reported Past Surgical History: Adenoidectomy, Orthopedic Surgery, Tonsillectomy, Tubal Ligation Additional Past Surgical History / Comment(s): BILAT FOOT SX. CONE BX Past Anesthesia/Blood Transfusion Reactions: No Reported Reaction Past Psychological History: No Psychological Hx Reported Smoking Status: Never smoker Past Alcohol Use History: None Reported Past Drug Use History: None Reported - Past Family History Father Family Medical History: Cancer Medications and Allergies Home Medications Medication Instructions Recorded Confirmed Type Flecainide Acetate 50 mg PO BID 04/07/18 07/29/21 History Metoprolol Tartrate [Lopressor] 12.5 mg PO BID 04/07/18 07/29/21 History Cholecalciferol [Vitamin D3 (25 25 mcg PO DAILY 07/29/21 07/29/21 History Mcg = 1000 Iu)] lisinopriL [Zestril] 5 mg PO DAILY 07/29/21 07/29/21 History Allergies Allergy/AdvReac Type Severity Reaction Status Date / Time egg Allergy Rash/Hives Verified 07/29/21 19:33 Penicillins Allergy Unknown Verified 07/29/21 19:33 Childhood Sulfa (Sulfonamide Allergy Rash/Hives Verified 07/29/21 19:33 Antibiotics) corn AdvReac congestion,sometimes Verified 07/29/21 19:33 hives Milk Containing Products AdvReac congestion,sometimes Verified 07/29/21 19:33 [Dairy] hives potato AdvReac congestion,sometimes Verified 07/29/21 19:33 hives soy AdvReac congestion,sometimes Verified 07/29/21 19:33 hives tomato AdvReac congestion,sometimes Verified 07/29/21 19:33 hives Physical Exam Osteopathic Statement: *. No significant issues noted on an osteopathic structural exam other than those noted in the History and Physical/Consult. Vitals: Vital Signs Temp Pulse Pulse Resp BP BP Pulse Ox 07/30/21 21:32 98.8 F 74 16 169/69 97 07/30/21 20:00 98.8 F 74 16 169/69 97 07/30/21 17:47 88 16 125/85 97 07/30/21 12:22 73 18 140/92 98 07/30/21 08:00 66 13 148/90 96 07/30/21 05:50 98.1 F 65 18 140/85 98 07/30/21 04:00 62 18 134/74 98 07/30/21 01:00 60 18 07/30/21 00:00 60 18 157/83 96 Intake and Output 07/30/21 07/30/21 07/31/21 14:59 22:59 06:59 Intake Total 225 Balance 225 Intake: Intake, IV Titration 225 Amount Sodium Chloride 0.9% 1, 225 000 ml @ 75 mls/hr IV . [id number] [facility] Rx#:[id number] Other: # Voids 1 Weight 64.41 kg GENERAL: This is a 66-year-old in no apparent distress at the time of examination. Pleasant and cooperative. HEENT: Head is atraumatic, normocephalic. Pupils are equal, round, and reactive to light. Sclerae anicteric. Conjunctivae are clear. Mucus membranes of the mouth are moist. Neck is supple. RESPIRATORY: Clear to auscultation. No wheezes, rales, or rhonchi. No use of accessory muscles. Patient maintaining oxygen saturation greater than 92%. CARDIOVASCULAR: Regular rate and rhythm. S1 and S2 noted. GASTROINTESTINAL: No distention noted. Abdomen soft and round. Normal active bowel sounds auscultated x 4 quadrants. No pain or tenderness noted upon palpat ion. INTEGUMENTARY: No cyanosis. No jaundice. No rashes noted. No cellulitis noted. EXTREMITIES: 2+ peripheral pulses. No evidence of peripheral edema. No calf tenderness noted. NEUROLOGIC: Cranial nerves II-XII intact. PSYCHIATRIC: Awake, alert, and oriented X 3. Appropriate affect. Intact judgeme nt and insight. Results CBC & Chem 7: 07/31/21 07:24 07/31/21 07:24 Labs: Abnormal Lab Results - Last 24 Hours (Table) 07/30/21 Range/Units 00:21 Troponin I 0.097 H* (0.000-0.034) ng/mL Thrombosis Risk Factor Assmnt - Choose All That Apply Any of the Below Risk Factors Present?: No Each Risk Factor Represents 2 Points: Age 61-74 years Other congenital or acquired thrombophilia - If yes, enter type in comment: No Thrombosis Risk Factor Assessment Total Risk Factor Score: 2 Thrombosis Risk Factor Assessment Level: Low Risk Assessment and Plan (1) Tachycardia Status: Acute Code(s): R00.0 - TACHYCARDIA, UNSPECIFIED SNOMED Code(s): 7135655 (2) Hypertension Status: Acute Code(s): I10 - ESSENTIAL (PRIMARY) HYPERTENSION SNOMED Code(s): 22871517 (3) Supraventricular tachycardia Status: Acute Code(s): I47.1 - SUPRAVENTRICULAR TACHYCARDIA SNOMED Code(s): 7528589 Plan: Plan patient is going to undergo cardiac evaluation for supraventricular tachycardia she will be placed on telemetry and serial EKGs and enzymes. She will undergo cardiac stress testing in the AM.
== END 2021-07-31 14:59 | disposition home or self-care (01) ==
LOC: EC 16:40 → 6NMEDSUR 18:38 → 3SCARD 21:56
PROVIDERS: ADMIT Family Medicine; ATTEND Family Medicine
DX: I47.1 Supraventricular tachycardia (principal); R79.89 Other specified abnormal findings of blood chemistry; I49.3 Ventricular premature depolarization; N28.9 Disorder of kidney and ureter, unspecified; I10 Essential (primary) hypertension; H93.13 Tinnitus, bilateral; Z79.899 Other long term (current) drug therapy; Z91.012 Allergy to eggs; Z91.011 Allergy to milk products; Z88.0 Allergy status to penicillin; Z88.2 Allergy status to sulfonamides; Z91.018 Allergy to other foods; Z98.51 Tubal ligation status; Z98.890 Other specified postprocedural states; Z80.9 Family history of malignant neoplasm, unspecified
CPT/HCPCS: 96376; 96361 ×2; 96374; 99285; 36415; 93005 ×2; 93306; 93351; 84439; 84481; 80053; 80048; 83735; 84443; 84484 ×2; 85025 ×2; 85610; 85730; 71046; G0378 ×3; C9113 ×2

== ENCOUNTER → 2021-08-28 | Outpatient (CLI) | payer MEDICARE ==
--- NOTE | 2021-08-29 14:48 | MM ---
Reason for Exam: Screening (asymptomatic). Last screening mammogram was performed 12 month(s) ago. Patient History: Menarche at age 10. First Full-Term at age 18. Postmenopausal. Paternal grandmother had breast cancer. Paternal aunt had breast cancer. Risk Values: Leonila 5 year model risk: 1.5%. NCI Lifetime model risk: 5.0%. Film Views: Bilateral CC views were taken. Bilateral MLO views were taken. Bilateral XCCL views were taken. Prior Study Comparison: 03/03/2017 Bilateral Screening Mammogram, [facility]. 04/27/2018 Bilateral Screening Mammogram, [facility]. 08/24/2020 Bilateral Screening Mammogram, [facility]. Tissue Density: The breast tissue is heterogeneously dense. This may lower the sensitivity of mammography. Findings: Analyzed By CAD. There is no suspicious group of microcalcifications or new suspicious mass in either breast. Overall Assessment: Benign, BI-RAD 2 Management: Screening Mammogram of both breasts in 1 year. A clinical breast exam by your physician is recommended on an annual basis and results should be correlated with mammographic findings. Electronically signed and approved by: Maximiliano Best M.D. Radiologis
== END | disposition home or self-care (01) ==
LOC: RADMAMWWP 09:00
PROVIDERS: ATTEND Family Medicine
DX: Z12.31 Encounter for screening mammogram for malignant neoplasm of breast (principal); Z80.3 Family history of malignant neoplasm of breast; Z78.0 Asymptomatic menopausal state
CPT/HCPCS: 77067

== ENCOUNTER → 2022-10-03 | Outpatient (CLI) | payer MEDICARE ==
--- NOTE | 2022-10-06 09:08 | MM ---
Reason for Exam: Screening (asymptomatic). Last mammogram was performed 1 year(s) and 1 month(s) ago. Patient History: Menarche at age 10. First Full-Term at age 18. Postmenopausal. Patient has history of breast feeding. Paternal grandmother had breast cancer. Paternal aunt had breast cancer. Risk Values: Leonila 5 year model risk: 1.5%. Prior Study Comparison: 04/27/2018 Bilateral Screening Mammogram, [facility]. 08/24/2020 Bilateral Screening Mammogram, [facility]. 08/28/2021 Bilateral MG screening mammo w CAD, [facility]. Tissue Density: The breast tissue is heterogeneously dense. This may lower the sensitivity of mammography. Findings: Analyzed By CAD. There is no suspicious group of microcalcifications or new suspicious mass in either breast. Overall Assessment: Negative, BI-RAD 1 Management: Screening Mammogram of both breasts in 1 year. . Patient should continue monthly self-breast exams. A clinical breast exam by your physician is recommended on an annual basis. This exam should not preclude additional follow-up of suspicious palpable abnormalities. Note on Leonila scores and lifetime risk: 1. A Leonila score greater than 3% is considered moderate risk. If this is the case, consider specialist referral to assess eligibility for a risk reducing agent. 2. If overall lifetime risk for the development of breast cancer is 20% or higher, the patient may qualify for future screening with alternating mammogram and breast MRI. Electronically signed and approved by: Javi Ribeiro M.D. Radiologis
== END | disposition home or self-care (01) ==
LOC: RADMAMWWP 07:17
PROVIDERS: ATTEND Family Medicine
DX: Z12.31 Encounter for screening mammogram for malignant neoplasm of breast (principal); Z80.3 Family history of malignant neoplasm of breast; Z78.0 Asymptomatic menopausal state
CPT/HCPCS: 77067

== ENCOUNTER → 2023-11-30 | Outpatient (CLI) | payer MEDICARE ==
--- NOTE | 2023-12-08 12:35 | MM ---
Reason for Exam: Screening (asymptomatic). Last mammogram was performed 1 year(s) and 2 month(s) ago. Patient History: Menarche at age 10. First Full-Term at age 17. Postmenopausal. Patient has history of breast feeding. Paternal grandmother had breast cancer. Paternal aunt had breast cancer. Risk Values: Leonila 5 year model risk: 1.2%. NCI Lifetime model risk: 3.7%. Prior Study Comparison: 11/05/2015 Bilateral Screening Mammogram, [facility]. 03/03/2017 Bilateral Screening Mammogram, [facility]. 04/27/2018 Bilateral Screening Mammogram, [facility]. 08/24/2020 Bilateral Screening Mammogram, [facility]. 08/28/2021 Bilateral MG screening mammo w CAD, [facility]. 10/03/2022 Bilateral MG screening mammo w CAD, [facility]. Tissue Density: The breasts are heterogeneously dense, which may obscure small masses. Findings: Analyzed By CAD. Right breast: There is no suspicious group of microcalcifications or new suspicious mass. Benign-appearing calcifications right breast. Left breast: There is no suspicious group of microcalcifications or new suspicious mass. Benign-appearing calcifications left breast. Overall Assessment: Benign, BI-RAD 2 Management: Screening Mammogram of both breasts in [address] [facility] will attempt to contact patient to return for supplemental views and ultrasound if indicated. Patient should continue monthly self-breast exams. A clinical breast exam by your physician is recommended on an annual basis. This exam should not preclude additional follow-up of suspicious palpable abnormalities. Note on Leonila scores and lifetime risk: 1. A Leonila score greater than 3% is considered moderate risk. If this is the case, consider specialist referral to assess eligibility for a risk reducing agent. 2. If overall lifetime risk for the development of breast cancer is 20% or higher, the patient may qualify for future screening with alternating mammogram and breast MRI. Electronically signed and approved by: Geraldo Cho DO
== END | disposition home or self-care (01) ==
LOC: RADMAMWWP 13:21
PROVIDERS: ATTEND Family Medicine
DX: Z12.31 Encounter for screening mammogram for malignant neoplasm of breast
CPT/HCPCS: 77063; 77067

== ENCOUNTER → 2024-10-25 | Outpatient (CLI) | payer MEDICARE ==
--- NOTE | 2024-10-25 21:17 | MR ---
MR shoulder LT wo con DATE OF EXAM: 10/25/2024 3:52 PM COMPARISON: Left shoulder radiographs 09/13/2024. CLINICAL INDICATION: Female, 69 years old with history of M25.512 LT SHOULDER PAIN; PHH, Left shoulde r pain x2 months TECHNIQUE: Noncontrast multiplanar, multiecho imaging of the shoulder was performed, including T1-pter ghted and fluid sensitive sequences. FINDINGS: Rotator cuff: Supraspinatus and infraspinatus: High-grade partial-thickness bursal surface tear of supraspinatus at the footplate measures 1.7 cm (AP). Background tendinosis. Intact infraspinatus with tendinosis. Subscapularis: High-grade partial thickness articular surface tear subscapularis at the junction betw een superior and inferior fibers. Teres minor: Intact. Cuff muscles: Eaji-ar-ancxcput fatty replacement of the superior subscapularis muscle. Remainder of t he rotator cuff muscle bulk preserved. No edema. Acromioclavicular joint: Mild arthrosis. No significant subacromial osseous proliferation. SA-SD bursa: Trace bursal fluid. Long head biceps tendon: Intact, however slightly perched on the lesser tuberosity. Tenosynovitis out of proportion to joint effusion. Tendinosis of the intra-articular portion. Rotator Interval: Minimal edema, complete effacement of the fat. Axillary pouch: Preserved. Labrum: Diminutive and frayed appearance compatible degeneration with a more discrete suspected tear of the posterior inferior labrum. Cartilage: Near full-thickness high-grade defect of the central glenoid cartilage. Severe thinning of the superior humeral head articular cartilage. Marrow: No fracture or marrow replacing process. Punctate subcortical cysts of the posterolateral cor ner of the humeral head. Other soft tissues: Small joint effusion. No suspicious axillary adenopathy. IMPRESSION: 1. High-grade partial bursal surface supraspinatus tear with tendinosis of supra and infraspinatus. 2. High-grade partial-thickness articular surface tear of subscapularis with additional findings sug gestive of biceps instability. 3. Moderate glenohumeral arthrosis with high-grade central glenoid chondral defect with additional d egeneration and tearing of the labrum. [facility], Workstation: [facility], 10/25/2024 9:14 PM
== END | disposition home or self-care (01) ==
LOC: RADMRIMAIN 14:52
PROVIDERS: ATTEND Orthopaedic Surgery
DX: S46.012A Strain of muscle(s) and tendon(s) of the rotator cuff of left shoulder, initial encounter (principal); M67.814 Other specified disorders of tendon, left shoulder; X58.XXXA Exposure to other specified factors, initial encounter